=== PATIENT | female | born 1950 | race Hispanic/Latino ===

== ENCOUNTER 2024-04-01 12:44 | Outpatient (CLI) | payer OTHER | END 2024-04-01 12:45 | disposition home or self-care (01) | LOC: BICRAD 12:44 | PROVIDERS: ATTEND Family Medicine | DX: R76.12 Nonspecific reaction to cell mediated immunity measurement of gamma interferon antigen response without active tuberculosis (principal); M85.80 Other specified disorders of bone density and structure, unspecified site | CPT/HCPCS: 71045 ==